=== PATIENT | female | born 1955 | race Caucasian/White ===

== ENCOUNTER 2019-01-08 00:25 | Emergency (ER) | payer BC ==
[2019-01-08] MEDS ORDERED: Acetaminophen 500 MG Tab PO ONE (01:09)
--- NOTE | 2019-01-08 01:23 | EDM.PDOC ---
ED HPI GENERAL MEDICAL PROBLEM - General Chief Complaint: Lower Extremity Injury/Pain Stated Complaint: LEFT LEG WARM AND RED Time Seen by Provider: 01/08/19 01:00 Source of Information: Reports: Patient History Limitations: Reports: Other (no old records) - History of Present Illness INITIAL COMMENTS - FREE TEXT/NARRATIVE: 63 yo female on warfarin with a pHx of DVT presents with mild aching in the L leg and tender veins that are more prominent than usual. No SOB. Had mild, transient nausea at home before arrival. 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 (see below) (Is already on warfarin as a home med.) Left Knee Pain Score (Numeric/FACES): 6 - Related Data Allergies Allergy/AdvReac Type Severity Reaction Status Date / Time No Known Allergies Allergy Verified 01/08/19 00:45 Home Meds: Home Meds Warfarin Sodium [Coumadin] 6 mg PO ASDIRECTED 01/08/19 [History] Warfarin [Coumadin] 7 mg PO DAILY 01/08/19 [History] Past Medical History HEENT History: Reports: Impaired Vision Cardiovascular History: Reports: Other (See Below) 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: Hematologic History: Reports: Other (See Below) Other Hematologic History: high plattlets Armani 2 - Past Surgical History GI Surgical History: Reports: Colonoscopy Social & Family History - Tobacco Use Smoking Status *Q: Never Smoker Second Hand Smoke Exposure: No - Caffeine Use Caffeine Use: Reports: Coffee, Soda - Alcohol Use Days Per Week of Alcohol Use: 3 Number of Drinks Per Day: 2 Total Drinks Per Week: 6 - Recreational Drug Use Recreational Drug Use: No Review of Systems - Review of Systems Review Of Systems: See Below Constitutional: Reports: No Symptoms Eyes: Reports: No Symptoms Ears: Reports: No Symptoms Nose: Reports: No Symptoms Mouth/Throat: Reports: No Symptoms Respiratory: Reports: No Symptoms Cardiovascular: Reports: No Symptoms GI/Abdominal: Reports: No Symptoms Genitourinary: Reports: No Symptoms Musculoskeletal: Reports: Leg Pain (mild achiness) Skin: Reports: No Symptoms Neurological: Reports: No Symptoms ED EXAM, GENERAL - Physical Exam Exam: See Below Exam Limited By: No Limitations General Appearance: Alert, WD/WN, No Apparent Distress Respiratory/Chest: No Respiratory Distress, No Accessory Muscle Use Cardiovascular: Regular Rate, Rhythm, No Edema Extremities: Normal Range of Motion, Non-Tender, No Pedal Edema, Other ( prominence of the superficial veins of the L leg. No calf pain with squeezing or with foot dorsiflexion. No increased warmth of that leg. ) Neurological: Alert, Oriented, CN II-XII Intact, Normal Cognition, No Motor/ Sensory Deficits Psychiatric: Normal Affect, Normal Mood Skin Exam: Warm, Dry, Intact, Normal Color, No Rash Course - Vital Signs Last Recorded V/S: Last Vital Signs Temp 36.1 C 01/08/19 00:55 Pulse 90 01/08/19 00:55 Resp 16 01/08/19 00:55 BP 172/93 H 01/08/19 00:55 Pulse Ox 97 01/08/19 00:55 - Orders/Labs/Meds Labs: Laboratory Tests 01/08/19 Range/Units 01:20 PT 36.4 H (9.5-12.0) sec INR 3.63 H (0.80-1.20) Meds: Medications Discontinued Medications Generic Name Dose Route Start Last Admin Trade Name Enrike PRN Reason Stop Dose Admin Acetaminophen 1,000 mg 01/08/19 01:09 01/08/19 01:17 Tylenol Extra Strength PO 01/08/19 01:10 1,000 mg ONETIME ONE Administration Departure - Departure Time of Disposition: 02:01 Disposition: Home, Self-Care 01 Condition: Good Clinical Impression: Superficial thrombophlebitis of left leg - Discharge Information *PRESCRIPTION DRUG MONITORING PROGRAM REVIEWED*: No *COPY OF PRESCRIPTION DRUG MONITORING REPORT IN PATIENT PATRICIA: No Instructions: Phlebitis, [id number] Referrals: PCP,None [Primary Care Provider] - Forms: ED Department Discharge Additional Instructions: Elevate the left leg above your heart as much as possible. Apply moist heat to affected areas. Take acetaminophen as needed. Your INR was 3.6 today.
== END 2019-01-08 02:13 | disposition home or self-care (01) ==
LOC: JP.ED 00:25
DX: I80.02 Phlebitis and thrombophlebitis of superficial vessels of left lower extremity (principal); Z79.01 Long term (current) use of anticoagulants; B37.2 Candidiasis of skin and nail; R03.0 Elevated blood-pressure reading, without diagnosis of hypertension; I83.92 Asymptomatic varicose veins of left lower extremity
CPT/HCPCS: 36415; 85610; 99282; 99283; A9270

== ENCOUNTER 2019-01-08 13:08 | Emergency (ER) | payer BC ==
--- NOTE | 2019-01-08 14:37 | EDM.PDOC ---
ED HPI GENERAL MEDICAL PROBLEM - General Chief Complaint: Skin Complaint Stated Complaint: LEFT SIDE RASH (SHINGLES) Time Seen by Provider: 01/08/19 14:20 Source of Information: Reports: Patient History Limitations: Reports: No Limitations - History of Present Illness INITIAL COMMENTS - FREE TEXT/NARRATIVE: 63 female present with concerning rash under left breast which she noted this am after showering. Patient denies any pain in the area. Patient is visit with girlfriends this weekend and was at the ER earlier today with aching left lower leg and negative DVT study. Patient otherwise feels fine without fever, chills, sweats, nausea, vomiting or lightheadedness. Patient denies any new lotions. soaps of perfumes. 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 ED EXAM, SKIN/RASH Exam: See Below Exam Limited By: No Limitations General Appearance: Alert, WD/WN, No Apparent Distress Ears: Normal External Exam Nose: Normal Inspection Throat/Mouth: Normal Inspection, Normal Voice, No Airway Compromise Head: Normocephalic Neck: Normal Inspection, Full Range of Motion Respiratory/Chest: No Respiratory Distress Cardiovascular: Normal Peripheral Pulses Extremities: Normal Inspection, Normal Range of Motion, Non-Tender, No Pedal Edema, Normal Capillary Refill, Other (enlarged veings noted in left lower leg without edema or erythema. Varicose veins noted. ) Neurological: Alert, Oriented, CN II-XII Intact, Normal Cognition, Normal Gait, Normal Reflexes, No Motor/Sensory Deficits Psychiatric: Normal Affect, Normal Mood Skin: Rash (brightly erythematous rash under left breast wtih satelete lesion consistent with Yeast dermatitis ) Location, Skin: Chest (under left breast ) Course - Vital Signs Last Recorded V/S: Last Vital Signs Temp 36.1 C 01/08/19 14:03 Pulse 66 01/08/19 14:03 Resp 20 01/08/19 14:03 BP 170/97 H 01/08/19 14:03 Pulse Ox 97 01/08/19 14:03 Departure - Departure Time of Disposition: 14:32 Disposition: Home, Self-Care 01 Clinical Impression: Elevated blood pressure reading, Yeast dermatitis, Varicose vein of leg - Discharge Information Prescriptions: Nystatin [Nystatin Crm] 15 gm TOP TID 7 Days #1 tube Instructions: How to Take Your Blood Pressure, Preventing Hypertension, Hypertension, Skin Yeast Infection, Varicose Veins, Nonsurgical Procedures for Varicose Veins Referrals: PCP,None [Primary Care Provider] - Additional Instructions: 1. Nystatin as directed or Clotrimazole (OTC) for yeast dermatitis. 2. Cotton clothing, ensure areas were skin touches ensure completely dry after showering or place a piece of cotton to keep area dry. 3. CDI consult for Pelvic congestion syndrome to help with deep ache and fullness with increased varicosities in right leg. 4. Compression sticking will help. 5. Follow information given. See PCP if not improving or worsening redness or pain. - Problem List & Annotations (1) Elevated blood pressure reading SNOMED Code(s): 25930382 Code(s): R03.0 - ELEVATED BLOOD-PRESSURE READING, W/O DIAGNOSIS OF HTN Status: Acute Current Visit: Yes (2) Yeast dermatitis SNOMED Code(s): 30645396 Code(s): B37.2 - CANDIDIASIS OF SKIN AND NAIL Status: Acute Current Visit : Yes
== END 2019-01-08 14:49 | disposition home or self-care (01) ==
LOC: JP.ED 13:08
DX: B37.2 Candidiasis of skin and nail (principal); R03.0 Elevated blood-pressure reading, without diagnosis of hypertension; I83.92 Asymptomatic varicose veins of left lower extremity; Z79.01 Long term (current) use of anticoagulants
CPT/HCPCS: 99282